=== PATIENT | female | born 1965 | race Caucasian/White ===

== ENCOUNTER → 2016-09-03 | Day surgery (SDC) | payer BC ==
[2016-09-02 15:02] VITALS: BMI 29.0
[~2016-09-03] VITALS: Ht 157.5 cm; Wt 72.7 kg
[~2016-09-03] MED LIST: AMIT10TA6 PO; ASPCH81X PO; B-CO1CAP17 PO; B-COTAB18 PO; BLAC1TAB2 PO; CHOL20007 PO; ESCI10TA17 PO; GABA600T PO; LIDO1CRE EXT; LIDOCAINE HCL 2% 2 ML VIAL (20MG/ML) ONE; MINO100C22 PO; MULT-506 PO; OXYB5TAB74 PO; PHEN10TA31 PO; PRLSR20 PO; PROPOFOL IV EMULSION 10 MG/ML 20 ML VIAL IV ONE; SODIUM CHLORIDE 0.9% 500ML 500 ML IV ONE; SOY CARE PO; TRAM-10 PO; TRAZ50TA35 PO; VITA400C28 PO; VITA400C3 PO; [UNRECOGNIZED DRUG - CODE] PO; [UNRECOGNIZED DRUG - OTHER] TOP
[2016-09-03 13:40] VITALS: Ht 157.5 cm; Wt 72.7 kg
--- NOTE | 2016-09-03 14:27 | Endo History and Physical ---
History & Physical Date of Service: Sep 03, 2016. Chief Complaint: dysphagia Referring Physician: Dr Campbell History of Present Illness 51 yo CF who presents for EGD secondary to dysphagia. Past Medical History Reflux, Depression Past Surgical History Hx Cardiac Surgery: No Hx Internal Defibrillator: No Hx Pacemaker: No Hx Abdominal Surgery: Yes (LAP CATY, UTERINE ABLATION) Hx of Implantable Prosthesis: No Hx Post-Op Nausea and Vomiting: Yes (REQUESTING MEDS TO PREVENT DRY HIVES) Hx Cancer Surgery: No Hx Thoracic Surgery: No Hx Orthopedic: No Hx Urinary Tract Surgery: No Family History None Social History Smoking Status: Never Smoker Hx Substance Use: No Hx Alcohol Use: Yes (OCCASSIONALLY) Allergies Coded Allergies: Prochlorperazine (Verified Allergy, Severe, throat swelling,difficulty swallowing, 09/03/16) Current Medications Reported Home Medications Medications Dose Route/Sig Max Daily Dose Days Date Category Elavil (Amitriptyline Hcl) 10 Mg Tab 2 Tab PO HS 30 09/03/16 Reported Lidocaine (Lidocaine Hcl) 3 % Cre 1 Dose EXT DAILY PRN 09/02/16 Reported Ultram (Tramadol HCl) 50 Mg Tab 50 Mg PO BID PRN 09/02/16 Reported [Soy Care] 1 Cap PO BID 09/02/16 Reported Vitamin B Complex (B-Complex Vitamins) 1 Tab Tab 1 Tab PO QAM 09/02/16 Reported Vitamin E 400 Iu (Vitamin E) 400 Unit Cap 400 Inter.unit PO QAM 09/02/16 Reported Multivitamin (Multivitamins) Tab 1 Tab PO QAM 09/02/16 Reported Vitamin D3 (Cholecalciferol) 2,000 Unit Tab 1 Tab PO QAM 90 09/02/16 Reported Phenylephrine Hcl (Phenylephrine Hcl (Oral)) 10 Mg Tab 1 Tab PO BID 09/02/16 Reported [facility] Allergy Relief (Chlorpheniramine Maleate) 4 Mg Tab 1 Tab PO BID 09/02/16 Reported Aspirin Chewable (Aspirin) 81 Mg Chew 81 Mg PO QAM 09/02/16 Reported Ditropan (Oxybutynin Chloride) 5 Mg Tab 5 Mg PO QAM 09/02/16 Reported Prilosec (Omeprazole) 20 Mg Capcr 20 Mg PO QAM 09/02/16 Reported Lexapro (Escitalopram Oxalate) 10 Mg Tab 10 Mg PO HS 09/02/16 Reported Trazodone (Trazodone HCl) 50 Mg Tab 50 Mg PO HS 09/02/16 Reported Minocin (Minocycline HCl) 100 Mg Cap 100 Mg PO QAM 09/02/16 Reported Neurontin (Gabapentin) 600 Mg Tab 2 Tab PO TID 09/02/16 Reported Vital Signs Weight (Kilograms): 72.73 Height (Feet): 5 Height (Inches): 2 Date Time Temp Pulse Resp B/P Pulse Ox O2 Delivery O2 Flow Rate FiO2 09/03/16 13:47 36.8 85 18 160/98 95 Room Air Physical Exam General Appearance: WD/WN, no apparent distress Respiratory/Chest: Auscultation: breath sounds normal Cardiovascular: Heart Auscultation: RRR Abdomen: Bowel Sounds: normal Inspection & Palpation: soft, non-distended, no tenderness, guarding & rebound Assessment and Plan Assessment: 51 yo CF who presents for EGD secondary to dysphagia. Plan: Proceed with EGD.
--- NOTE | 2016-09-03 15:13 | Discharge Instructions ---
Endoscopy Patient Instructions Date / Procedure(s) Performed Sep 03, 2016. EGD Allergy Information Coded Allergies: Prochlorperazine (Verified Allergy, Severe, throat swelling,difficulty swallowing, 09/03/16) Discharge Date / Findings Sep 03, 2016. Gastric polyps Medication Instructions OK to resume all medications today as prescribed Reported Home Medications Medications Dose Route/Sig Max Daily Dose Days Date Category Elavil (Amitriptyline Hcl) 10 Mg Tab 2 Tab PO HS 30 09/03/16 Reported Lidocaine (Lidocaine Hcl) 3 % Cre 1 Dose EXT DAILY PRN 09/02/16 Reported Ultram (Tramadol HCl) 50 Mg Tab 50 Mg PO BID PRN 09/02/16 Reported [Soy Care] 1 Cap PO BID 09/02/16 Reported Vitamin B Complex (B-Complex Vitamins) 1 Tab Tab 1 Tab PO QAM 09/02/16 Reported Vitamin E 400 Iu (Vitamin E) 400 Unit Cap 400 Inter.unit PO QAM 09/02/16 Reported Multivitamin (Multivitamins) Tab 1 Tab PO QAM 09/02/16 Reported Vitamin D3 (Cholecalciferol) 2,000 Unit Tab 1 Tab PO QAM 90 09/02/16 Reported Phenylephrine Hcl (Phenylephrine Hcl (Oral)) 10 Mg Tab 1 Tab PO BID 09/02/16 Reported [facility] Allergy Relief (Chlorpheniramine Maleate) 4 Mg Tab 1 Tab PO BID 09/02/16 Reported Aspirin Chewable (Aspirin) 81 Mg Chew 81 Mg PO QAM 09/02/16 Reported Ditropan (Oxybutynin Chloride) 5 Mg Tab 5 Mg PO QAM 09/02/16 Reported Prilosec (Omeprazole) 20 Mg Capcr 20 Mg PO QAM 09/02/16 Reported Lexapro (Escitalopram Oxalate) 10 Mg Tab 10 Mg PO HS 09/02/16 Reported Trazodone (Trazodone HCl) 50 Mg Tab 50 Mg PO HS 09/02/16 Reported Minocin (Minocycline HCl) 100 Mg Cap 100 Mg PO QAM 09/02/16 Reported Neurontin (Gabapentin) 600 Mg Tab 2 Tab PO TID 09/02/16 Reported Provider Instructions Activity Restrictions - No exercising or heavy lifting for 24 hours. - Do not drink alcohol the day of the procedure. - Do not drive a car or operate machinery until the day after the procedure. - Do not make any important decisions or sign important papers in 24 hours after the procedure. Following Day: - Return to full activity which may include returning to work/school. Diet Start your diet with liquids and light foods (jello, soup, juice, toast). Then eat your usual diet if not nauseated. Treatment For Common After Affects For mild abdominal pain, bloating, or excessive gas: - Rest - Eat lightly - Lie on right side Follow-Up Information Follow-up with Dr Campbell as scheduled Anesthesia Information What You Should Know You have had a procedure that required some medicine to reduce anxiety and discomfort. This treatment is called moderate sedation. After receiving the treatment, you may be sleepy, but you will be able to breathe on your own. The effects of the treatment may last for several hours. Follow these instructions along with Activity/Diet recommendations noted above: * Do NOT do anything where dizziness or clumsiness would be dangerous. * Rest quietly at home today, then you can be up and about tomorrow. * Have a responsible person stay with you the rest of today. * You may have had an I.V. today. If so, you may take the dressing off later today. Recommendations Call your doctor if: * Trouble breathing * Continuous vomiting for more than 24 hours * Temperature above 101 degrees * Severe abdominal pain or bloating * Pain not relieved by pain medicine ordered * There is increased drainage or redness from any incision * A large amount of rectal bleeding greater than 2-3 tablespoons. (If you had a polyp/s removed or have hemorrhoids, a small amount of blood - from the rectum is to be expected.) * You have any unanswered questions or concerns. IN THE EVENT OF A SERIOUS EMERGENCY, GO TO THE NEAREST EMERGENCY ROOM Your discharge instructions were prepared by provider Sebastien Deluca. Patient Instructions Signature Page Cristin Martinez Patient (or Guardian) Signature/Date: I have read and understand the instructions given to me by my caregivers. Caregiver/RN/Doctor Signature/Date: The above-named patient and/or guardian has received patient instructions on this date. + Original Patient Signature Page (only) stays with chart. Please make copy for patient.
--- NOTE | 2016-09-03 15:21 | GI REPORT ---
Procedure Date: 09/03/2016 2:54 PM Procedure: Upper GI endoscopy Indications: Dysphagia Medicines: Monitored Anesthesia Care Complications: No immediate complications. Estimated Blood Loss: Estimated blood loss: none. Procedure: Pre-Anesthesia Assessment: - Prior to the procedure, a History and Physical was performed, and patient medications and allergies were reviewed. The patient's tolerance of previous anesthesia was also reviewed. The risks and benefits of the procedure and the sedation options and risks were discussed with the patient. All questions were answered, and informed consent was obtained. Prior Anticoagulants: The patient has taken no previous anticoagulant or antiplatelet agents. ASA Grade Assessment: II - A patient with mild systemic disease. After reviewing the risks and benefits, the patient was deemed in satisfactory condition to undergo the procedure. After obtaining informed consent, the endoscope was passed under direct vision. Throughout the procedure, the patient's blood pressure, pulse, and oxygen saturations were monitored continuously. The scope was introduced through the mouth, and advanced to the second part of duodenum. The upper GI endoscopy was accomplished without difficulty. The patient tolerated the procedure well. Findings: No endoscopic abnormality was evident in the esophagus to explain the patient's complaint of dysphagia. Multiple 3 to 6 mm sessile polyps with no stigmata of recent bleeding were found in the gastric fundus. Biopsies were taken with a cold forceps for histology. The examined duodenum was normal. Impression: - No endoscopic esophageal abnormality to explain patient's dysphagia. - Multiple gastric polyps. Biopsied. - Normal examined duodenum. Recommendation: - Await pathology results. - Resume previous diet. - Continue present medications. - Return to GI office as previously scheduled. Sebastien Deluca, DO 09/03/2016 3:21:21 PM This report has been signed electronically. Note Initiated On: 09/03/2016 2:54 PM
[2016-09-03 16:03] VITALS: BP 131/83; PULSE 73; O2SAT 98
--- NOTE | 2016-09-03 16:46 | Anesthesiology Progress Note ---
Anesthesia Post Op Note Date & Time Sep 03, 2016 at 16:36 Vital Signs Pain Intensity: 3 Vital Signs Past 12 Hours Date Time Temp Pulse Resp B/P Pulse Ox O2 Delivery O2 Flow Rate FiO2 09/03/16 16:03 73 18 131/83 98 Room Air 09/03/16 15:45 68 18 153/87 98 Room Air 09/03/16 15:30 82 18 130/78 97 Room Air 09/03/16 15:12 75 18 107/55 98 Room Air 09/03/16 13:47 36.8 85 18 160/98 95 Room Air Notes Mental Status: alert / awake / arousable, participated in evaluation Pt Amnestic to Procedure: Yes Nausea / Vomiting: adequately controlled Pain: adequately controlled Airway Patency, RR, SpO2: stable & adequate BP & HR: stable & adequate Hydration State: stable & adequate Anesthetic Complications: no major complications apparent The patient is a 51 y/o female with h/o GERD s/p EGD with Dr. Deluca. The patient did well during the procedure with no issues. In recovery, the patient began complaining of chest pressure starting on the right moving across her sternum to the left. The pain did not radiate. She denied any nausea, lightheadedness or shortness of breath. Her vital signs were stable. She had regular rate and rhythm and her lungs were clear to auscultation bilaterally. An EKG was done and showed NSR with sinus arrhythmia HR 80, Inc RBBB no ischemic changes. The patient was given soda and began burping. She stated that her pain significantly improved with burping and was nearly resolved on discharge. She said she felt well and would like to go home. I instructed her to go to the ED with chest pain, shortness of breath, lightheaded or dizziness or with any other complaints. She understands and agrees.
== END | disposition home or self-care (01) ==
LOC: C.GI 13:24
PROVIDERS: ATTEND Internal Medicine
DX: R13.10 Dysphagia, unspecified (principal); K31.7 Polyp of stomach and duodenum; F32.9 Major depressive disorder, single episode, unspecified; K21.9 Gastro-esophageal reflux disease without esophagitis; Z90.49 Acquired absence of other specified parts of digestive tract; Z98.890 Other specified postprocedural states; Z68.29 Body mass index [BMI] 29.0-29.9, adult

== ENCOUNTER → 2016-10-02 | Outpatient (CLI) | payer BC ==
[~2016-10-02] MED LIST changes: -LIDOCAINE HCL 2% 2 ML VIAL (20MG/ML) ONE; -PROPOFOL IV EMULSION 10 MG/ML 20 ML VIAL IV ONE; -SODIUM CHLORIDE 0.9% 500ML 500 ML IV ONE
--- NOTE | 2016-10-02 08:55 | DIAGNOSTIC IMAGING REPORT ---
(BARIUM SWALLOW) ESOPHAGUS CLINICAL HISTORY: Dysphagia. COMPARISON STUDY: None FLUOROSCOPY TIME: 1 minute. FINDINGS: 19 fluoroscopic images were obtained. Esophageal motility was normal. No esophageal mass or stricture was identified. A 13 mm barium tablet passed into the stomach. No reflux was elicited. No hiatal hernia was identified. IMPRESSION: Normal barium swallow. Electronically signed by: Roc Marks M.D. 10/02/2016 8:54 AM Dictated Date/Time: 10/02/2016 8:46 AM
== END | disposition home or self-care (01) ==
LOC: C.RAD 08:18
PROVIDERS: ATTEND Internal Medicine
DX: R13.10 Dysphagia, unspecified (principal)

== ENCOUNTER → 2017-02-18 | Day surgery (SDC) | payer BC ==
[2017-02-12 14:35] VITALS: BMI 29.0
[~2017-02-18] VITALS: Ht 157.5 cm; Wt 72.7 kg
[~2017-02-18] MED LIST changes: +DTR/5 PO; +ESTR0.3T PO; -LIDO1CRE EXT; +LIDOCAINE HCL 2% 2 ML VIAL (20MG/ML) ONE; +ONDANSETRON INJ 2 MG/ML 2 ML VIAL ONE; -OXYB5TAB74 PO; +PROPOFOL IV EMULSION 10 MG/ML 20 ML VIAL IV ONE; +SODIUM CHLORIDE 0.9% 500ML 500 ML IV ONE; -SOY CARE PO; +SPIR25TA PO; -VITA400C3 PO
[2017-02-18 09:36] VITALS: Ht 157.5 cm; Wt 72.7 kg
--- NOTE | 2017-02-18 10:20 | Endo History and Physical ---
History & Physical Date of Service: Feb 18, 2017. Chief Complaint: screening Referring Physician: dr. berg History of Present Illness 51 yo CF who presents for screening colonoscopy. Past Medical History Reflux, Depression Past Surgical History Hx Cardiac Surgery: No Hx Internal Defibrillator: No Hx Pacemaker: No Hx Abdominal Surgery: Yes (LAP GB SURG) Hx of Implantable Prosthesis: No Hx Post-Op Nausea and Vomiting: Yes (NAUSEA) Hx Cancer Surgery: Yes (EXCISION BASAL CELL FOREHEAD/KNEE) Hx Thoracic Surgery: No Hx Orthopedic: No Hx Urinary Tract Surgery: No Family History None Social History Smoking Status: Never Smoker Hx Substance Use: No Hx Alcohol Use: Yes (OCCASIONALLY) Allergies Coded Allergies: Prochlorperazine (Verified Allergy, Severe, throat swelling,difficulty swallowing, 02/18/17) Current Medications Reported Home Medications Medications Dose Route/Sig Max Daily Dose Days Date Category Dose Instructions [Compounded Cr] 1 Dose TOP PRN 02/12/17 Reported ARM NERVE PAIN/SPASMS Alph-E (Vitamin E) 400 Unit Cap 400 Units PO QAM 02/12/17 Reported Nephrocaps (Vitamin B Complex/Vit C/Folic Acid) Cap 1 Cap PO QAM 02/12/17 Reported Remifemin (Black Cohosh (Cimicifuga Racem) 20 Mg Tab 20 Mg PO BID 02/12/17 Reported Elavil (Amitriptyline Hcl) 10 Mg Tab 20 Mg PO HS 30 09/03/16 Reported Ultram (Tramadol HCl) 50 Mg Tab 50 Mg PO BID PRN 09/02/16 Reported Vitamin B Complex (B-Complex Vitamins) 1 Tab Tab 1 Tab PO QAM 09/02/16 Reported Multivitamin (Multivitamins) Tab 1 Tab PO QAM 09/02/16 Reported Vitamin D3 (Cholecalciferol) 2,000 Unit Tab 1 Tab PO QAM 90 09/02/16 Reported Phenylephrine Hcl (Phenylephrine Hcl (Oral)) 10 Mg Tab 1 Tab PO BID 09/02/16 Reported [facility] Allergy Relief (Chlorpheniramine Maleate) 4 Mg Tab 1 Tab PO BID 09/02/16 Reported Aspirin Chewable (Aspirin) 81 Mg Chew 81 Mg PO QAM 09/02/16 Reported Ditropan (Oxybutynin Chloride) 5 Mg Tab 5 Mg PO QAM 09/02/16 Reported Prilosec (Omeprazole) 20 Mg Capcr 20 Mg PO QAM 09/02/16 Reported Lexapro (Escitalopram Oxalate) 10 Mg Tab 10 Mg PO HS 09/02/16 Reported Trazodone (Trazodone HCl) 50 Mg Tab 50 Mg PO HS 09/02/16 Reported Minocin (Minocycline HCl) 100 Mg Cap 100 Mg PO QAM 09/02/16 Reported Neurontin (Gabapentin) 600 Mg Tab 2 Tab PO TID 09/02/16 Reported Vital Signs Weight (Kilograms): 72.73 Height (Feet): 5 Height (Inches): 2 Date Time Temp Pulse Resp B/P (MAP) Pulse Ox O2 Delivery O2 Flow Rate FiO2 02/18/17 09:45 36.9 99 20 159/89 (112) 100 Room Air Physical Exam General Appearance: WD/WN, no apparent distress Respiratory/Chest: Auscultation: breath sounds normal Cardiovascular: Heart Auscultation: RRR Abdomen: Bowel Sounds: normal Inspection & Palpation: soft, non-distended, no tenderness, guarding & rebound Assessment and Plan Assessment: 51 yo CF who presents for screening colonoscopy. Plan: Proceed with colonoscopy.
--- NOTE | 2017-02-18 10:54 | Discharge Instructions ---
Endoscopy Patient Instructions Date / Procedure(s) Performed Feb 18, 2017. Colonoscopy Allergy Information Coded Allergies: Prochlorperazine (Verified Allergy, Severe, throat swelling,difficulty swallowing, 02/18/17) Discharge Date / Findings Feb 18, 2017. Colon polyps Medication Instructions Stopped Medication(s): asa minocyline OK to resume all medications today as prescribed Reported Home Medications Medications Dose Route/Sig Max Daily Dose Days Date Category Dose Instructions [Compounded Cr] 1 Dose TOP PRN 02/12/17 Reported ARM NERVE PAIN/SPASMS Alph-E (Vitamin E) 400 Unit Cap 400 Units PO QAM 02/12/17 Reported Nephrocaps (Vitamin B Complex/Vit C/Folic Acid) Cap 1 Cap PO QAM 02/12/17 Reported Remifemin (Black Cohosh (Cimicifuga Racem) 20 Mg Tab 20 Mg PO BID 02/12/17 Reported Elavil (Amitriptyline Hcl) 10 Mg Tab 20 Mg PO HS 30 09/03/16 Reported Ultram (Tramadol HCl) 50 Mg Tab 50 Mg PO BID PRN 09/02/16 Reported Vitamin B Complex (B-Complex Vitamins) 1 Tab Tab 1 Tab PO QAM 09/02/16 Reported Multivitamin (Multivitamins) Tab 1 Tab PO QAM 09/02/16 Reported Vitamin D3 (Cholecalciferol) 2,000 Unit Tab 1 Tab PO QAM 90 09/02/16 Reported Phenylephrine Hcl (Phenylephrine Hcl (Oral)) 10 Mg Tab 1 Tab PO BID 09/02/16 Reported [facility] Allergy Relief (Chlorpheniramine Maleate) 4 Mg Tab 1 Tab PO BID 09/02/16 Reported Aspirin Chewable (Aspirin) 81 Mg Chew 81 Mg PO QAM 09/02/16 Reported Ditropan (Oxybutynin Chloride) 5 Mg Tab 5 Mg PO QAM 09/02/16 Reported Prilosec (Omeprazole) 20 Mg Capcr 20 Mg PO QAM 09/02/16 Reported Lexapro (Escitalopram Oxalate) 10 Mg Tab 10 Mg PO HS 09/02/16 Reported Trazodone (Trazodone HCl) 50 Mg Tab 50 Mg PO HS 09/02/16 Reported Minocin (Minocycline HCl) 100 Mg Cap 100 Mg PO QAM 09/02/16 Reported Neurontin (Gabapentin) 600 Mg Tab 2 Tab PO TID 09/02/16 Reported Provider Instructions Activity Restrictions - No exercising or heavy lifting for 24 hours. - Do not drink alcohol the day of the procedure. - Do not drive a car or operate machinery until the day after the procedure. - Do not make any important decisions or sign important papers in 24 hours after the procedure. Following Day: - Return to full activity which may include returning to work/school. Diet Start your diet with liquids and light foods (jello, soup, juice, toast). Then eat your usual diet if not nauseated. Treatment For Common After Affects For mild abdominal pain, bloating, or excessive gas: - Rest - Eat lightly - Lie on right side Follow-Up Information Follow-up with dr. berg as scheduled Anesthesia Information What You Should Know You have had a procedure that required some medicine to reduce anxiety and discomfort. This treatment is called moderate sedation. After receiving the treatment, you may be sleepy, but you will be able to breathe on your own. The effects of the treatment may last for several hours. Follow these instructions along with Activity/Diet recommendations noted above: * Do NOT do anything where dizziness or clumsiness would be dangerous. * Rest quietly at home today, then you can be up and about tomorrow. * Have a responsible person stay with you the rest of today. * You may have had an I.V. today. If so, you may take the dressing off later today. Recommendations Call your doctor if: * Trouble breathing * Continuous vomiting for more than 24 hours * Temperature above 101 degrees * Severe abdominal pain or bloating * Pain not relieved by pain medicine ordered * There is increased drainage or redness from any incision * A large amount of rectal bleeding greater than 2-3 tablespoons. (If you had a polyp/s removed or have hemorrhoids, a small amount of blood - from the rectum is to be expected.) * You have any unanswered questions or concerns. IN THE EVENT OF A SERIOUS EMERGENCY, GO TO THE NEAREST EMERGENCY ROOM Your discharge instructions were prepared by provider Sebastien Deluca. Patient Instructions Signature Page Cristin Martinez Patient (or Guardian) Signature/Date: I have read and understand the instructions given to me by my caregivers. Caregiver/RN/Doctor Signature/Date: The above-named patient and/or guardian has received patient instructions on this date. + Original Patient Signature Page (only) stays with chart. Please make copy for patient.
--- NOTE | 2017-02-18 11:00 | GI REPORT ---
Procedure Date: 02/18/2017 10:04 AM Procedure: Colonoscopy Indications: Screening for colorectal malignant neoplasm Medicines: Monitored Anesthesia Care Complications: No immediate complications. Estimated Blood Loss: Estimated blood loss: none. Procedure: Pre-Anesthesia Assessment: - Prior to the procedure, a History and Physical was performed, and patient medications and allergies were reviewed. The patient's tolerance of previous anesthesia was also reviewed. The risks and benefits of the procedure and the sedation options and risks were discussed with the patient. All questions were answered, and informed consent was obtained. Prior Anticoagulants: The patient has taken aspirin, last dose was 10 days prior to procedure. ASA Grade Assessment: III - A patient with severe systemic disease. After reviewing the risks and benefits, the patient was deemed in satisfactory condition to undergo the procedure. After I obtained informed consent, the scope was passed under direct vision. Throughout the procedure, the patient's blood pressure, pulse, and oxygen saturations were monitored continuously. The scope was introduced through the anus and advanced to the terminal ileum. The colonoscopy was performed without difficulty. The patient tolerated the procedure well. The quality of the bowel preparation was good. The terminal ileum, ileocecal valve, appendiceal orifice, and rectum were photographed. Findings: Two sessile polyps were found in the ascending colon. The polyps were 3 to 4 mm in size. These polyps were removed with a cold snare. Resection and retrieval were complete. The exam was otherwise without abnormality on direct and retroflexion views. Impression: - Two 3 to 4 mm polyps in the ascending colon, removed with a cold snare. Resected and retrieved. - The examination was otherwise normal on direct and retroflexion views. Recommendation: - Resume previous diet. - Continue present medications. - Repeat colonoscopy for surveillance based on pathology results. - Return to primary care physician as previously scheduled. Sebastien Deluca DO 02/18/2017 10:58:58 AM This report has been signed electronically. Note Initiated On: 02/18/2017 10:04 AM I attest to the content of the Intraoperative Record and orders documented therein, exceptions below
[2017-02-18 11:17] VITALS: BP 145/92; PULSE 93; O2SAT 98
--- NOTE | 2017-02-18 11:50 | Anesthesiology Progress Note ---
Anesthesia Post Op Note Date & Time Feb 18, 2017 at 11:50 Vital Signs Pain Intensity: 0 Vital Signs Past 12 Hours Date Time Temp Pulse Resp B/P (MAP) Pulse Ox O2 Delivery O2 Flow Rate FiO2 02/18/17 11:17 93 20 145/92 (109) 98 Room Air 02/18/17 11:04 93 20 140/97 (111) 98 Room Air 02/18/17 10:49 93 16 123/85 (98) 98 Room Air 02/18/17 09:45 36.9 99 20 159/89 (112) 100 Room Air Notes Mental Status: alert / awake / arousable, participated in evaluation Pt Amnestic to Procedure: Yes Nausea / Vomiting: adequately controlled Pain: adequately controlled Airway Patency, RR, SpO2: stable & adequate BP & HR: stable & adequate Hydration State: stable & adequate Anesthetic Complications: no major complications apparent
== END | disposition home or self-care (01) ==
LOC: C.GI 09:24
PROVIDERS: ATTEND Internal Medicine
DX: Z12.11 Encounter for screening for malignant neoplasm of colon (principal); D12.2 Benign neoplasm of ascending colon; K21.9 Gastro-esophageal reflux disease without esophagitis; F32.9 Major depressive disorder, single episode, unspecified; Z79.82 Long term (current) use of aspirin; Z79.899 Other long term (current) drug therapy

== ENCOUNTER → 2017-07-08 | Outpatient (CLI) | payer BC ==
[~2017-07-08] MED LIST changes: -LIDOCAINE HCL 2% 2 ML VIAL (20MG/ML) ONE; -ONDANSETRON INJ 2 MG/ML 2 ML VIAL ONE; -PROPOFOL IV EMULSION 10 MG/ML 20 ML VIAL IV ONE; -SODIUM CHLORIDE 0.9% 500ML 500 ML IV ONE
--- NOTE | 2017-07-08 14:49 | DIAGNOSTIC IMAGING REPORT ---
LEFT POPLITEAL FOSSA ULTRASOUND CLINICAL HISTORY: CYST ON KNEE, localized swelling within the left posterior knee. COMPARISON STUDY: None. FINDINGS: Real-time sonographic imaging of the left popliteal fossa was performed. No masses or fluid collections identified. The popliteal artery and vein are patent. IMPRESSION: No sonographic abnormality within the left popliteal fossa. Specifically, no evidence for a popliteal cyst. Electronically signed by: Contreras Espino M.D. 07/08/2017 2:48 PM Dictated Date/Time: 07/08/2017 2:47 PM
== END | disposition home or self-care (01) ==
LOC: C.ULTRBC 13:58
PROVIDERS: ATTEND Physician Assistant Medical
DX: R22.9 Localized swelling, mass and lump, unspecified (principal)

== ENCOUNTER → 2017-07-13 | Outpatient (CLI) | payer BC ==
--- NOTE | 2017-07-14 14:31 | MAMMOGRAPHY REPORT ---
BILATERAL DIGITAL SCREENING MAMMOGRAM TOMOSYNTHESIS WITH CAD: 07/13/2017 CLINICAL HISTORY: Routine screening. Patient has no complaints. TECHNIQUE: Breast tomosynthesis in addition to standard 2D mammography was performed. Current study was also evaluated with a Computer Aided Detection (CAD) system. COMPARISON: Comparison is made to exam dated: 07/10/2016 mammogram - [facility] [address] BREAST COMPOSITION: There are scattered areas of fibroglandular density in both breasts. FINDINGS: The parenchymal pattern is unchanged. No developing mass, architectural distortion or clus ter of suspicious microcalcifications is seen in either breast. IMPRESSION: ACR BI-RADS CATEGORY 2: BENIGN There is no mammographic evidence of malignancy. A 1 year screening mammogram is recommended. The pa tient will receive written notification of the results. Approximately 10% of breast cancers are not detected with mammography. A negative mammographic report should not delay biopsy if a clinically suggestive mass is present. Oliva Andres M.D. ay/:07/13/2017 15:41:01 [employer] Food Sales Assistant: Arina VÁSQUEZ(Claudia)(Laurita), [facility] [address] letter sent: Normal 1/2 BI-RADS Code: ACR BI-RADS Category 2: Benign
== END | disposition home or self-care (01) ==
LOC: C.MAMM 15:09
PROVIDERS: ATTEND Family Medicine
DX: Z12.31 Encounter for screening mammogram for malignant neoplasm of breast (principal)

== ENCOUNTER → 2018-04-05 | Outpatient (CLI) | payer BC ==
[~2018-04-05] MED LIST changes: -AMIT10TA6 PO; +AMT/50 PO; -B-CO1CAP17 PO; +B-COCAP2 PO; -BLAC1TAB2 PO; +CYM/30 PO; -ESCI10TA17 PO; -GABA600T PO; -MINO100C22 PO; -TRAM-10 PO; -[UNRECOGNIZED DRUG - OTHER] TOP
--- NOTE | 2018-04-05 18:32 | DIAGNOSTIC IMAGING REPORT ---
L-SPINE MIN 4 VIEWS ROUTINE CLINICAL HISTORY: Chronic low back pain radiating into left lower extremity. COMPARISON: None FINDINGS: Incidental note is made of cholecystectomy clips and tubal ligation clips. There is minimal leftward curvature of the lumbar spine. For purposes of numbering on this exam, there are rudimentary ribs at the T12 level. Note is made of marked disc space narrowing with osteophytosis and vacuum disc phenomenon at L5-S1. There is mild multilevel facet arthrosis. Mild osteoarthritis of both sacroiliac joints is noted. IMPRESSION: 1. No acute lumbar spine fracture. 2. Marked disc space narrowing with osteophytosis and vacuum disc phenomenon at L5-S1. 3. Mild multilevel facet arthrosis. Electronically signed by: Roc Marks M.D. 04/05/2018 6:30 PM Dictated Date/Time: 04/05/2018 6:29 PM
== END | disposition home or self-care (01) ==
LOC: C.RAD 18:08
PROVIDERS: ATTEND Chiropractor
DX: M51.37 Other intervertebral disc degeneration, lumbosacral region (principal); M25.78 Osteophyte, vertebrae; M47.9 Spondylosis, unspecified